=== PATIENT | male | born 1960 | race Caucasian/White ===

== ENCOUNTER 2017-08-03 07:46 | Day surgery (SDC) | payer OTHER ==
[2017-08-03] MEDS ORDERED: LIDOCAINE 4% SOLUTION 50 ML BTL (09:34)
[2017-08-03] MEDS ORDERED: MIDAZOLAM 1 MG/ML 2 ML INJ ×2 (10:15)
[2017-08-03] MEDS ORDERED: FENTAnyl 50 MCG/ML VIAL (10:15)
== END 2017-08-03 11:17 | disposition home or self-care (01) ==
LOC: GIL 07:46
DX: Z12.11 Encounter for screening for malignant neoplasm of colon (principal); K29.50 Unspecified chronic gastritis without bleeding; D12.4 Benign neoplasm of descending colon; K64.4 Residual hemorrhoidal skin tags; I10 Essential (primary) hypertension
CPT/HCPCS: 43239; 88305; 88312